=== PATIENT | female | born 1990 | race Caucasian/White ===

== ENCOUNTER 2021-07-15 17:13 | Outpatient (CLI) | payer SELFPAY ==
[2021-07-15 17:35] LABS: Absolute Lymphocyte Count 2.61 X10^3/uL (0.83-4.51); Absolute Neutrophil Count 5.4 X10^3/uL (2.0-7.7); Basophil# 0.03 X10^3/uL; Basophil% 0.3 % (0-1); Eosinophil# 0.27 X10^3/uL; Eosinophils% 2.9 % (0-5); Hematocrit 37.9 % (37-47); Hemoglobin 13.2 g/dL (12.0-15.0); Lymphocyte # 2.61 X10^3/ul (0.83-4.51); Mean Corp Hgb Conc 34.8 g/dL (32-36); Mean Corpuscular Hgb 31.7 pg (27.0-32.0); Mean Corpuscular Volume 91.1 fL (81-99); Mean Platelet Vol. 9.8 fl (6.2-12.0); Monocyte# 0.99 X10^3/uL; Monocyte% 10.6 % (0-10); NRBC Flagged by Analyzer 0 % (0-5); Neutrophil # 5.36 X10^3/uL (2.7-7.7); Neutrophil % 57.7 % (47-70); Platelet Count 271 K/mm3 (150-450); RBC Distribution Width CV 12.3 % (11.6-14.6); RBC Distribution Width SD 40.8 fl (35.1-43.9); Red Blood Count 4.16 M/mm3 (4.2-5.4); White Blood Count 9.3 K/mm3 (4.4-11.0)
[2021-07-16 08:42] LABS: HIV - WCH Non-Reactive (Nonreactive); Hepatitis B Surface Antigen Non-Reactive (Nonreactive); Hepatitis C Antibody Non-Reactive (Nonreactive); Rubella IgG Reactive (Nonreactive); Syphilis Antibodies Non-reactive
[2021-07-17 22:07] LABS: Chlamydia By Nucleic Acid AMP Negative (Negative)
[2021-07-18 11:36] LABS: Gonococcus By Nucleic Acid AMP Negative (Negative)
[2021-07-19 16:28] LABS: HPV Reflexed? NOT INDICATED
== END 2021-07-15 23:59 | disposition short-term general hospital (02) ==
LOC: WOBLAB 17:16
PROVIDERS: Visit Provider Student in an Organized Health Care Education/Training Program
DX: Z34.81 Encounter for supervision of other normal pregnancy, first trimester (principal); Z12.4 Encounter for screening for malignant neoplasm of cervix; Z11.3 Encounter for screening for infections with a predominantly sexual mode of transmission
CPT/HCPCS: 36415; 85025; 86703; 86762; 86780; 86803; 87086; 87088; 87340; 87491; 87591; 88175; G0145

== ENCOUNTER → 2021-11-04 | Outpatient (CLI) | payer SELFPAY ==
[2021-11-04 10:42] LABS: Hematocrit 38.2 % (37-47); Hemoglobin 13.1 g/dL (12.0-15.0); Mean Corp Hgb Conc 34.3 g/dL (32-36); Mean Corpuscular Hgb 32.2 pg (27.0-32.0); Mean Corpuscular Volume 93.9 fL (81-99); Mean Platelet Vol. 10.5 fl (6.2-12.0); Platelet Count 242 K/mm3 (150-450); RBC Distribution Width CV 12.2 % (11.6-14.6); RBC Distribution Width SD 42.1 fl (35.1-43.9); Red Blood Count 4.07 M/mm3 (4.2-5.4); White Blood Count 10.1 K/mm3 (4.4-11.0)
[2021-11-04 10:49] LABS: Glucose Challenge Gest 1H 50g 80 mg/dL (70-140)
== END | disposition home or self-care (01) ==
PROVIDERS: Visit Provider Student in an Organized Health Care Education/Training Program
DX: Z34.83 Encounter for supervision of other normal pregnancy, third trimester (principal); N39.0 Urinary tract infection, site not specified; N77.1 Vaginitis, vulvitis and vulvovaginitis in diseases classified elsewhere
CPT/HCPCS: 36415; 82950; 85027; 87086; 87088

== ENCOUNTER 2022-01-15 02:25 | Inpatient (IN) | payer BC, SELFPAY ==
[2022-01-15] VITALS (67 sets, daily range): BP systolic 94–166; BP diastolic 61–100; PULSE 64–120; RESP 18; TEMP 36.2–37.2; O2SAT 85–100; BMI 34.2
[2022-01-15 02:22] LABS: ROM Internal Control Test YES-OK TO RESULT pt. (Internal QC)
[2022-01-15 02:24] LABS: ROM Patient Test POSITIVE (Negative)
[2022-01-15] MEDS: 0.9% Saline Lock 10 ML Syringe IV ×3 (02:45→20:57)
[2022-01-15 03:46] LABS: Absolute Lymphocyte Count 3.36 X10^3/uL (0.83-4.51); Absolute Neutrophil Count 8.9 X10^3/uL (2.0-7.7); Basophil# 0.05 X10^3/uL; Basophil% 0.4 % (0-1); Eosinophil# 0.32 X10^3/uL; Eosinophils% 2.3 % (0-5); Hematocrit 39.8 % (37-47); Hemoglobin 13.7 g/dL (12.0-15.0); Lymphocyte # 3.36 X10^3/ul (0.83-4.51); Lymphocyte % 23.7 % (19-41); Mean Corp Hgb Conc 34.4 g/dL (32-36); Mean Corpuscular Hgb 31.8 pg (27.0-32.0); Mean Corpuscular Volume 92.3 fL (81-99); Mean Platelet Vol. 11.8 fl (6.2-12.0); Monocyte# 1.44 X10^3/uL; Monocyte% 10.2 % (0-10); NRBC Flagged by Analyzer 0 % (0-5); Neutrophil # 8.88 X10^3/uL (2.7-7.7); Neutrophil % 62.7 % (47-70); Platelet Count 246 K/mm3 (150-450); RBC Distribution Width CV 12.5 % (11.6-14.6); RBC Distribution Width SD 41.4 fl (35.1-43.9); Red Blood Count 4.31 M/mm3 (4.2-5.4); White Blood Count 14.2 K/mm3 (4.4-11.0)
[2022-01-15] MEDS: Betamethasone/Betamethasone 30 MG/5 ML Vial 12 MG IM (03:56)
[2022-01-15 04:11] LABS: AST(SGOT) 21 U/L (15-37); Alanine Aminotransfer ALT/SGPT 18 U/L (13-56); EST Glomerular Filtration Rate 89 mL/min (>60); Est Glom Filt Rate - Afr Amer 108 mL/min (>60); Estimated Creatinine Clearance 111.19 ml/min; Uric Acid 7.3 mg/dL (2.6-6.0)
[2022-01-15 04:47] LABS: Probe Check PASS
[2022-01-15 04:48] LABS: Group B Strep DNA By PCR POSITIVE (Negative)
[2022-01-15] MEDS: Lactated Ringers 1,000 ML 50 ML IV (05:32)
[2022-01-15 05:53] LABS: Protein, Urine (Random) 7.5 mg/dL (<11.9); Protein:Creat Ratio 540 mg/g CRE (0-200)
[2022-01-15] MEDS: miSOPROStol 25 MCG TABLET VAGINAL (08:18)
[2022-01-15] MEDS: Penicillin G 3,000,000 Units 50 ML 100 UNITS IV ×2 (09:49→14:50)
--- NOTE | 2022-01-15 09:59 | HP.PCM_ITS ---
History and Physical Date of Admission: 01/15/22 ACOG ANTEPARTUM RECORD - HISTORY AND PHYSICAL (01/15/2022) Name: CHRISTOPH ANDERSON History of this : This is a 31 year old [id number] presents at 36 wks + 1 days gestation with SROM. Mild headache the past few days. OB Physician: Padmini Rios [place]'s Physician: UNDECIDED ...................................................................... : 1990 Age: 31 Address: [address] [place] [address] Phone: (H) [phone] (O) [phone] Insurance Carrier: [facility] [id number] Emergency Contact: JATIN ANDERSON/ [phone] ...................................................................... Final ANNIE: 02/11/22 By Ultrasound: LMP PARITY: (G-Total Pregnancies P-Fullterm,Premature,Induced AB,Spont AB, Ectopics, Multiple,Living) ANNIE CONFIRMATION: By LMP: 05/07/21 Initial Exam: 02/11/22 By First Ultrasound Exam: 02/09/22 Final ANNIE: 02/11/22 OB PROBLEM LIST: Enc office Childbirth and BF Classes. EPDS 8 Declines genetic testing but will discuss w husb-- parents are Sikh. 2VC ALLERGIES: Latex Rash, itching No Known Drug Allergies MEDICATIONS: 28 mg-800 mcg tablet One pill by mouth once a day SOCIAL HISTORY: Smoking - used to smoke but quit Alcohol Use - drinks occasionally not while Diet - balanced Diet, minimal dairy, occ coffee and Water- 4 liters daily Lifestyle - Exercise - active job. Enc to walk 20 min most days. 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 Illicit Drug Use - denies use of street drugs Sexual Activity - [employer] Residence - owns a home Place of - [place]. Hours Worked - 40 Spouse-Sig Other Name - Jatin Anderson Spouse-Sig Other Occupation - [employer] Spouse-Sig Other Phone No - [phone] Children Name(s) - none PRIOR DELIVERY HISTORY DEL DATE GEST LAB WT LB WT OZ TYPE ANES LABOR TX ANTEPARTUM FLOW CHART VISIT GE RTC FU F F DE U U DATE WK MD WKS HT PN HR M SS BP ED WT DE GL D EF ST __ ____ ___ __ __ ___ __ __ __ ___ __ __ __ ___ __ Jan JM 1 35 V + + 126/82 0 233 - - 23 Piotr 33 JM 2 33 V + + 122/88 sl 229 tr - 06 Piotr 30 CM 2 30 + + 126/80 0 226 ne ne 03 November 25 CM 4 25 + + 120/70 0 220 ne ne Sep 20 CM 4 20 + + 104/68 0 213 ne ne Sep 16 CM 4 + 118/90 0 203 - - Jul 10 CM 4 +U 126/72 0 193 - - ANTEPARTUM NOTE(S): Jan 08 2022: Dec 25 2021: see note Dec 08 2021: FM well. Tired Nov 04 2021: No complaints Sep 30 2021: Glucola given Sep 02 2021: see note Jul 22 2021: doing well COMPREHENSIVE ANTEPARTUM NOTE(S): Jan 08 2022: Christoph is 35w1d here for PNV good FM no edema states she had some decreased FM on wednesday night but FM has been fine since. BR Jan 08 2022: 35 weeks, no complaints. GBS next visit. JM Dec 25 2021: Christoph is here for a pnv at /. Wants to discuss FM. Feels a lot of FM at night and less throughout the day. Sl edema in b/l ankles. Reports continuous sinus congestion/ allergies, wonders what she can do to improve this. Back pain present, trying different methods to relieve pain, maternity belt helps. MK Dec 25 2021: 33wk, 2VC previous u/s AGA reassuring. No further testing pt self pay. JM Dec 08 2021: 30/5w. 2VC - growth AGA. F/u 2w. CM Nov 04 2021: 25/6w. Glucola done today. 2VC - growth today AGA. Other anatomy wnl. Urinary and vaginal burning - urine cx sent, vaginitis sent. Feeling more emotional - discussed stressors in . Will notify if she feels the need for counseling or medications, not at this time. F/u 4w. CM Sep 30 2021: 20/6w. Glucola given for next visit. Anatomy US next week. F/u 4w. CM Sep 02 2021: Christoph is 16w6d. Here for PNV. She complains of constant little headaches that are more prominent in the morning. She has been taking acetaminophen to help relieve them. She also complains of a shooting pain in her hips. She states the pain has improved but still feels achy. She has no other questions/concerns at this time. MR Sep 02 2021: 16/6w. Discussed GANT - increase hydration, stretching, tylenol PRN. Discussed changes in joints/back/center of gravity contributing to more discomfort in . Rec belly support band. F/u 4w Anatomy US. CM Jul 22 2021: Christoph is 10w6d here for PNV. No edema doing well. no concerns or questions. Jul 22 2021: 10/6w FINAL ANNIE 02/11/22 by LMP c/w 10w US. Discussed vitamin supplementation, calcium/vitamin D3. NOB today. F/u 4w. CM Jul 22 2021: NOB VISIT-- Christoph is a 30 yo G 1 P 0 with ANNIE 02-11-[address] del at [facility] probably with epidural, uncertain of post discharge ped care and plans to breastfeed. 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 Her , Jatin works for [employer]. They were in Apr 2021 and are pleased about the pg although it was unplann Jul 15 2021: Christoph is here for a missed menses as a new pt w/ her SO. 30 y.o. . LMP approximately 05/07/21. Positive UPT in office. ANNIE 02/11/2022, pt is about 9 wks and 6 days. Overall doing well. Intermittent nausea, denies vomiting. Lower and upper abdominal cramping/ aching present. Has questions regarding appropriate weight gain and use of skin care products she gets through [facility]. Reviewed medi REVIEW OF SYSTEMS: GENERAL - Denies fever, or chills SKIN - Denies rash, new skin lesions, or change in moles EYES - Denies blurred vision, or change in visual acuity EARS - Denies ear pain, or difficulty hearing NOSE - Denies nasal congestion, discharge, or bleeding MOUTH - Denies sore throat, or difficulty swallowing NECK - Denies pain or swelling RESPIRATORY - Denies shortness of breath, cough, wheezing CARDIOVASCULAR - Denies palpitations, chest pain, orthopnea, PND, peripheral edema, syncope or claudication GASTROINTESTINAL - Denies nausea, vomiting, diarrhea, constipation, Denies abdominal pain, melena and or bright red blood GENITOURINARY - Denies dysuria, frequency of urination, urgency, or hesitancy MUSCULOSKELETAL - Denies joint or muscle pain, or back pain NEUROLOGICAL - Denies localized numbness, weakness, or tingling PSYCHIATRIC - Denies depression, anxiety, substance abuse or suicide attempts ENDOCRINE - Denies heat or cold intolerance, weight loss or gain, increasing thirst HEMATO-IMMUNOLOGIC - Denies easy bruising, bleeding, oral ulcerations or recurrent infections GENETICS SCREENING: Age 35+ years: No Thalassemia: No Neural Tube Defect: No Down Syndrome: No LALO-SACHS: No Sickle Cell Disease: No Hemophilia: No Musc. Dystrophy: No Cystic Fibrosis: No-declines screening [place] Chorea: No Mental Retardation: No Fragile X: No Other genetic: No Other defects: No SABs/still births: No Drugs since LMP: No INFECTION HISTORY: High risk AIDS: No High risk Hepatitis: No Exposed to TB: No Exposed to Herpes: No Rash/viral illness since LMP: No History of STD: No MENSTRUAL HISTORY: *Menses Amount/Duration: normal amountMenses Regularity: RegularMenarche (Age Onset): 16* PAST SUMMARY: PARITY: 1. Total Pregnancies............ 1 2. Full Term Pregnancies........ 0 3. Premature.................... 0 4. Abortions - Induced.......... 0 5. Abortions - Spontaneous...... 0 6. Ectopics..................... 0 7. Multiple Births.............. 0 8. Living Children.............. 0 PHYSICAL EXAMINATION General Appearence: 31 yo female in no acute distress Vital Signs: AF, VSS Heart: RRR without rubs or gallops Lungs: CTA x 2 Breasts: deferred Abdomen: gravid Pelvis: Cervix: Presentation: cephalic Station: Fetus: Size: AGA Movement: present Heart: present LAB TEST(S) ORDERED SINCE:05/17/21 01/15/2022 URIC ACID 01/15/2022 TYPE AND SCREEN 01/15/2022 SERUM CREATININE AND GFR 01/15/2022 PROTEIN+CREATININE RATIO,URINE 01/15/2022 GROUP B STREP DNA BY PCR 01/15/2022 COVID 19 AG RAPID (RN COLLECT) 01/15/2022 CBC-COMPLETE BLOOD CNT NO DIFF 01/15/2022 CBC W/DIFF, AUTOMATED 01/15/2022 AST(SGOT) 01/15/2022 ALANINE AMINOTRANSFERAS (SGPT) 01/15/2022 (ROM) RUPTURE OF MEMBRANES 11/06/2021 URINE CULTURE 11/06/2021 MISCELLANEOUS LAB PROCEDURE 11/04/2021 GLUCOSE CHALLENGE GEST 1H 50G 11/04/2021 CBC-COMPLETE BLOOD CNT NO DIFF 07/19/2021 PAP I-G W/RFX HRHPV-APTIMA 07/18/2021 CHLAMYDIA/GC IZZY APTIMA 07/17/2021 URINE CULTURE 07/16/2021 RUBELLA IGG 07/16/2021 L509.8000 07/16/[address] [facility] 07/16/2021 HEPATITIS C ANTIBODY 07/16/2021 HEPATITIS B SURFACE ANTIGEN 07/15/2021 T AND S-NO CHARGE W/PNP 07/15/2021 CBC W/DIFF, AUTOMATED == ==== Order Observation Description Value Ref_Range A* Site == ==== PROTEIN+CREATIN NOTE ARAYA PROTEIN+CREATIN UR CREAT 13.90 mg/dL NO RANGE EST. ML PROTEIN+CREATIN PROTEIN,UR.RAN. 7.5 mg/dL <11.9 ML PROTEIN+CREATIN PROT:CRE RATIO 540 mg/g CRE 0-200 H ML CBC-COMPLETE BL NOTE ARAYA CBC-COMPLETE BL WBC K/mm3 4.4-11.0 ML CBCD ORDERED CBC-COMPLETE BL RBC M/mm3 4.2-5.4 ML CBCD ORDERED CBC-COMPLETE BL HGB g/dL 12.0-15.0 ML CBCD ORDERED CBC-COMPLETE BL HCT 37-47 ML CBCD ORDERED CBC-COMPLETE BL MCV fL 81-99 ML CBCD ORDERED CBC-COMPLETE BL MCH pg 27.0-32.0 ML CBCD ORDERED CBC-COMPLETE BL MCHC g/dL 32-36 ML CBCD ORDERED CBC-COMPLETE BL RDW CV 11.6-14.6 ML CBCD ORDERED CBC-COMPLETE BL RDW SD fl 35.1-43.9 ML CBCD ORDERED CBC-COMPLETE BL PLT K/mm3 150-450 ML CBCD ORDERED [facility]~[address] [place], [address]~ TYPE AND SCRE AB SCREEN GEL NEGATIVE ML GROUP B STREP D NOTE ARAYA GROUP B STREP D GBS DNA ASSAY POSITIVE Negative A ML Penicillin is the recommended antibiotic for the treatment of Group B Streptococcal disease. In case of penicillin allergy, susceptibility testing for Clindamycin and Erythromycin is suggested by request. RESULTS CALLED TO Kurtis CAZARES RN WP 01/15/22 0447 Dejuan Stevenson. REPORT READ BACK BY SAME. ALANINE AMINOTR NOTE ARAYA ALANINE AMINOTR ALT 18 U/L 13-56 ML AST(SGOT) NOTE ARAYA AST(SGOT) AST 21 U/L 15-37 ML URIC ACID NOTE ARAYA URIC ACID URIC 7.3 mg/dL 2.6-6.0 H ML The drugs N-Acetylcysteine and Metamizole may falsely depress this assay. SERUM CREATININ NOTE ARAYA SERUM CREATININ CREAT,SERUM 0.80 mg/dL 0.55-1.02 ML The validity of the calculated GFR GFRAA in patients over 70 years has not been determined. Clinical correlation is essential. SERUM CREATININ EST GFR 89 mL/min >60 ML Non- GFR Calc SERUM CREATININ EST GFR - AA 108 mL/min >60 ML GFR Calc SERUM CREATININ ECRCL 111.19 ml/min ML COVID 19 AG RAP NOTE ARAYA CBC W/DIFF, AUT NOTE ARAYA CBC W/DIFF, AUT WBC 14.2 K/mm3 4.4-11.0 H ML CBC W/DIFF, AUT RBC 4.31 M/mm3 4.2-5.4 ML CBC W/DIFF, AUT HGB 13.7 g/dL 12.0-15.0 ML CBC W/DIFF, AUT HCT 39.8 37-47 ML CBC W/DIFF, AUT MCV 92.3 fL 81-99 ML CBC W/DIFF, AUT MCH 31.8 pg 27.0-32.0 ML CBC W/DIFF, AUT MCHC 34.4 g/dL 32-36 ML CBC W/DIFF, AUT RDW CV 12.5 11.6-14.6 ML CBC W/DIFF, AUT RDW SD 41.4 fl 35.1-43.9 ML CBC W/DIFF, AUT PLT 246 K/mm3 150-450 ML CBC W/DIFF, AUT MPV 11.8 fl 6.2-12.0 ML CBC W/DIFF, AUT NEUT% 62.7 47-70 ML CBC W/DIFF, AUT LY% 23.7 19-41 ML CBC W/DIFF, AUT MONO% 10.2 0-10 H ML CBC W/DIFF, AUT EO% 2.3 0-5 ML CBC W/DIFF, AUT BASO% 0.4 0-1 ML CBC W/DIFF, AUT IG% 0.700 0.0-0.9 ML IG% - Immature Granulocytes (promyelocytes, myelocytes and metamyelocytes) > 1% indicates that a LEFT SHIFT is Present. CBC W/DIFF, AUT ABSOLUTE NEUT 8.9 X10 3/uL 2.0-7.7 H ML CBC W/DIFF, AUT ABSOLUTE LYMPH 3.36 X10 3/uL 0.83-4.51 ML CBC W/DIFF, AUT NUCLEATED RBC 0 0-5 ML (ROM) RUPTURE O NOTE ARAYA (ROM) RUPTURE O ROM POSITIVE Negative A ML Amniotic fluid present indicates rupture of Membranes. RESULTS CALLED TO Luke LORENZO RN (WP) 01/15/22 8332 Chemo Lucas. REPORT READ BACK BY SAME . MISCELLANEOUS L NOTE ARAYA MISCELLANEOUS L MISC LAB TEST ML TEST RESULT LIMITS NuSwab Vaginitis Plus (VG+) Bacterial Vaginosis, IZZY Atopobium vaginae Low - 0 Score BVAB 2 Low - 0 Score Megasphaera 1 Low - 0 Score Total Score, add three scores Calculate total score by adding the 3 individual bacterial vaginosis (BV) marker scores together. Total score is interpreted as follows: Total score 0-1: Indicates the absence of BV. Total score 2: Indeterminate for BV. Additional clinical data should be evaluated to establish a diagnosis. Total score 3-6: Indicates the presence of BV. This test was developed and its performance characteristics determined by [facility]. It has not been cleared or approved by the Food and Drug Administration. Yaquelin albicans, IZZY A, Negative Negative Yaquelin glabrata, IZZY A, Negative Negative Trich vag by IZZY Negative Negative Chlamydia trachomatis, IZZY Negative Negative Neisseria gonorrhoeae, IZZY Negative Negative Comments A: This test was developed and its performance characteristics determined by [facility]. It has not been cleared or approved by the Food and Drug Administration. TESTING PERFORMED AT [facility]. ORIGINAL REPORT ON FILE IN LAB CONTAINS ADDITIONAL TEST SITE INFORMATION. URINE CULTURE NOTE ARAYA GLUCOSE CHALLEN NOTE ARAYA GLUCOSE CHALLEN GLU GEST 50G 1H 80 mg/dL 70-140 ML CBC-COMPLETE BL NOTE ARAYA CBC-COMPLETE BL WBC 10.1 K/mm3 4.4-11.0 ML CBC-COMPLETE BL RBC 4.07 M/mm3 4.2-5.4 L ML CBC-COMPLETE BL HGB 13.1 g/dL 12.0-15.0 ML CBC-COMPLETE BL HCT 38.2 37-47 ML CBC-COMPLETE BL MCV 93.9 fL 81-99 ML CBC-COMPLETE BL MCH 32.2 pg 27.0-32.0 H ML CBC-COMPLETE BL MCHC 34.3 g/dL 32-36 ML CBC-COMPLETE BL RDW CV 12.2 11.6-14.6 ML CBC-COMPLETE BL RDW SD 42.1 fl 35.1-43.9 ML CBC-COMPLETE BL PLT 242 K/mm3 150-450 ML CBC-COMPLETE BL MPV 10.5 fl 6.2-12.0 ML URINE CULTURE NOTE ARAYA HEPATITIS C ANT NOTE ARAYA HEPATITIS C ANT HEPATITIS C AB Non-Reactive Nonreactive ML Non Reactive: < 0.8 Equivocal: >/= 0.8 to < 1.0 Reactive: >/= 1.0 The CDC recommends that a reactive/equivocal HCV antibody result be followed up by the HCV Nucleic Acid Amplification test (620022) HEPATITIS B JESSICA NOTE ARAYA HEPATITIS B JESSICA HEP B SURF AG Non-Reactive Nonreactive ML HIV - WC NOTE ARAYA HIV - [facility] HIV Non-Reactive Nonreactive ML L509.8000 NOTE ARAYA L509.8000 SYPHILIS ABS Non-reactive ML RUBELLA IGG NOTE ARAYA RUBELLA IGG RUBELLA IGG Reactive Nonreactive ML Antibody Results Interpretation of Immune Status Non Reactive Presumed Non-Immune Equivocal Equivocal Reactive Presumed Immune PN N [facility]~[address] [place] [place], [address]~ T AND AB SCREEN GEL NEGATIVE ML CBC W/DIFF, AUT NOTE ARAYA CBC W/DIFF, AUT WBC 9.3 K/mm3 4.4-11.0 ML CBC W/DIFF, AUT RBC 4.16 M/mm3 4.2-5.4 L ML CBC W/DIFF, AUT HGB 13.2 g/dL 12.0-15.0 ML CBC W/DIFF, AUT HCT 37.9 37-47 ML CBC W/DIFF, AUT MCV 91.1 fL 81-99 ML CBC W/DIFF, AUT MCH 31.7 pg 27.0-32.0 ML CBC W/DIFF, AUT MCHC 34.8 g/dL 32-36 ML CBC W/DIFF, AUT RDW CV 12.3 11.6-14.6 ML CBC W/DIFF, AUT RDW SD 40.8 fl 35.1-43.9 ML CBC W/DIFF, AUT PLT 271 K/mm3 150-450 ML CBC W/DIFF, AUT MPV 9.8 fl 6.2-12.0 ML CBC W/DIFF, AUT NEUT% 57.7 47-70 ML CBC W/DIFF, AUT LY% 28.0 19-41 ML CBC W/DIFF, AUT MONO% 10.6 0-10 H ML CBC W/DIFF, AUT EO% 2.9 0-5 ML CBC W/DIFF, AUT BASO% 0.3 0-1 ML CBC W/DIFF, AUT IG% 0.500 0.0-0.9 ML IG% - Immature Granulocytes (promyelocytes, myelocytes and metamyelocytes) > 1% indicates that a LEFT SHIFT is Present. CBC W/DIFF, AUT ABSOLUTE NEUT 5.4 X10 3/uL 2.0-7.7 ML CBC W/DIFF, AUT ABSOLUTE LYMPH 2.61 X10 3/uL 0.83-4.51 ML CBC W/DIFF, AUT NUCLEATED RBC 0 0-5 ML PAP I-G W/RFX H NOTE ARAYA PAP I-G W/RFX H DIAG Comment . [facility]CI NEGATIVE FOR INTRAEPITHELIAL LESION OR MALIGNANCY. PAP I-G W/RFX H ADEQ Comment . LCI Satisfactory for evaluation. Endocervical and/or squamous metaplastic cells (endocervical component) are present. PAP I-G W/RFX H PERFORM Comment . LCI Donna Sosa Onyx Chip Terrazzo Worker (ASCP) This liquid based ThinPrep(R) pap test was screened with the use of an image guided system. PAP I-G W/RFX H COMM . . LCI PAP I-G W/RFX H PAPSMR Comment . LCI The Pap smear is a screening test designed to aid in the detection of premalignant and malignant conditions of the uterine cervix. It is not a diagnostic procedure and should not be used as the sole means of detecting cervical cancer. Both false-positive and false-negative reports do occur. PAP I-G W/RFX H HPV RFLX Comment . LCI The HPV DNA reflex criteria were not met with this specimen result therefore, no HPV testing was performed. Performed at: - [address] [id number] Safety Glass Installer: Ibeth Verdugo MD, Phone: [phone] CHLAMYDIA/GC NA NOTE ARAYA CHLAMYDIA/GC NA CHLAMY,NUC ACID Negative Negative LCI CHLAMYDIA/GC NA GC BY NUC ACID Negative Negative LCI Performed at: =[address] [id number] Safety Glass Installer: Ibeth Verdugo MD, Phone: [phone] B POSITIVE *Negative results from patients with symptom onset beyond five days should be treated as presumptive and confirmed by a molecular assay if clinically necessary. Negative results should not be used as the sole basis for treatment or for patient management. SARS-CoV-2 Ag Resp Ql IA.rapid *Positive results do not differentiate between SARS-CoV and SARS-CoV-2. If differentiation of the specific SARS virus is desired an additional sample and an additional order is required. SARS-CoV-2 Ag Resp Ql IA.rapid * This test has not been FDA cleared or approved; the test has been authorized by FDA under an Emergency Use Authorization (EAU) for use by laboratories certified under CLIA that meet the requirements to perform moderate, high, or waived complexity tests. SARS-CoV-2 Ag Resp Ql IA.rapid Normal Reference Range: Negative SARS-CoV-2 (COVID 19) Negative RAPID METHOD Quidel Ngozi Analyzer JOHN Below infection level. Mixed Gram Positive Organisms [place] Count <1000 Mixed Gram Pos Gram Neg Org [place] Count 11,000-25,000 MIXC Mixed contaminants. Submit a new specimen if indicated. B POSITIVE == ==== Impression /Plan: 36 wks + 1 days intrauterine with SROM at home. GBS positive on L and D. [facility] labs sent. Preparations in progress for delivery.
[2022-01-15] MEDS: LACTATED RINGERS 500 ML 999 ML IV (13:05)
[2022-01-15] MEDS: fentaNYL-bupivacaine (epidural) 100 ML BAG EPIDURAL (13:50)
[2022-01-15] MEDS: Oxytocin 30 units/NS 500 ml 30 UNITS/500 ML IV.SOLN 334 UNITS IV (17:57)
--- NOTE | 2022-01-15 18:11 | EX.PCM.OBRPT ---
Vaginal Delivery Operative Information Date of Procedure: 01/15/22 Findings Description of Procedure: Normal spontaneous vaginal delivery of a viable male , vertex ADRIANNA. Head and shoulders delivered with ease. Cord cut and clamped. Baby handed off to patient. First-degree midline perineal laceration and periurethral laceration noted and repaired in typical fashion. EBL 350 cc Apgars 8/9
[2022-01-15] MEDS: Benzocaine/Lanolin/Aloe Vera 1 SPRAY EACH TOPICAL (20:57)
--- NOTE | 2022-01-15 21:27 | NURSING ---
goldberg catheter discontinued per this RN. 10cc NS removed. 200 cc urine clear, yellow noted. pt tolerated well.
[2022-01-16 04:00] VITALS: BP 133/77; PULSE 85; RESP 16; TEMP 36.7
[2022-01-16 04:43] LABS: Absolute Lymphocyte Count 1.97 X10^3/uL (0.83-4.51); Absolute Neutrophil Count 18.7 X10^3/uL (2.0-7.7); Basophil# 0.04 X10^3/uL; Basophil% 0.2 % (0-1); Eosinophil# 0.01 X10^3/uL; Hemoglobin 12.8 g/dL (12.0-15.0); Lymphocyte # 1.97 X10^3/ul (0.83-4.51); Lymphocyte % 8.4 % (19-41); Mean Corp Hgb Conc 33.7 g/dL (32-36); Mean Corpuscular Hgb 31.4 pg (27.0-32.0); Mean Corpuscular Volume 93.1 fL (81-99); Mean Platelet Vol. 11.1 fl (6.2-12.0); Monocyte# 2.56 X10^3/uL; Monocyte% 10.9 % (0-10); NRBC Flagged by Analyzer 0 % (0-5); Neutrophil # 18.73 X10^3/uL (2.7-7.7); Neutrophil % 79.7 % (47-70); POSITIVE DIFFERENTIAL YES; Platelet Count 240 K/mm3 (150-450); RBC Distribution Width CV 12.5 % (11.6-14.6); RBC Distribution Width SD 42.5 fl (35.1-43.9); Red Blood Count 4.08 M/mm3 (4.2-5.4); White Blood Count 23.5 K/mm3 (4.4-11.0)
[2022-01-16 04:44] LABS: Differential Indicated SCAN CRITERIA MET
[2022-01-16 04:59] LABS: ALB/GLOB Ratio 0.7 RATIO (0.9-2.4); AST(SGOT) 20 U/L (15-37); Alanine Aminotransfer ALT/SGPT 17 U/L (13-56); Albumin, Serum 2.6 g/dL (3.2-5.0); Alkaline Phosphatase 147 U/L (45-117); Anion Gap 5 (5-15); BUN 11 mg/dL (7-18); Calcium,Total 8.7 mg/dL (8.5-10.1); Chloride 109 mmol/L (98-107); Creatinine, Serum 0.92 mg/dL (0.55-1.02); EST Glomerular Filtration Rate 77 mL/min (>60); Est Glom Filt Rate - Afr Amer 93 mL/min (>60); Estimated Creatinine Clearance 96.69 ml/min; Globulin 3.7 g/dL (2.2-4.2); Glucose 107 mg/dL (74-106); Potassium 4.6 mmol/L (3.5-5.1); Protein, Total 6.3 g/dL (6.4-8.2); Sodium Level 136 mmol/L (136-145)
[2022-01-16 05:03] LABS: Differential Comment SCANNED
--- NOTE | 2022-01-16 06:46 | PCM.PN.OB ---
Subjective Subjective Patient without complaints. Breast-feeding going well. Plans to stay until tomorrow. Objective Data Objective Data Vital Signs: Vital Signs Temp Pulse Resp BP Pulse Ox O2 Del Method 98.0 F 85 16 133/77 H 97 Room Air 01/16/22 04:00 01/16/22 04:00 01/16/22 04:00 01/16/22 04:00 01/15/22 23:25 01/16/22 04:00 Oxygen Delivery Method Room Air Weight: 238 lb 9.6 oz Body Mass Index (BMI) 34.2 Intake & Output: Intake and Output for Last 24 Hours 01/14/22 01/15/22 01/16/22 23:59 23:59 23:59 Intake Total 4245.00 / 4245.00 Output Total 2400 / 2400 600 / 600 Balance 1845.00 / 1845.00 -600 / -600 Lab / Micro Data Result Diagrams: 01/16/22 04:30 01/16/22 04:30 Labs: Laboratory Results - last 24 hr 01/16/22 04:30: WBC 23.5 H, RBC 4.08 L, Hgb 12.8, Hct 38.0, MCV 93.1, MCH 31.4, MCHC 33.7, RDW Std Deviation 42.5, RDW Coeff of Vimal 12.5, Plt Count 240, MPV 11.1, Immature Gran % (Auto) 0.800, Neut % (Auto) 79.7 H, Lymph % (Auto) 8.4 L, [place] % (Auto) 10.9 H, Eos % (Auto) 0.0, Baso % (Auto) 0.2, Absolute Neuts (auto) 18.7 H, Absolute Lymphs (auto) 1.97, Nucleated RBC % 0, Differential Comment SCANNED, Diff Path Review November01/16/22 04:30: Sodium 136, Potassium 4.6, Chloride 109 H, Carbon Dioxide 22.0, Anion Gap 5, BUN 11, Creatinine 0.92, Estim Creat Clear Calc 96.69, Est GFR (MDRD) Af Amer 93, Est GFR (MDRD) Non-Af 77, BUN/Creatinine Ratio 12.0, Glucose 107 H, Calcium 8.7, Total Bilirubin 0.60, AST 20, ALT 17, Alkaline Phosphatase 147 H, Total Protein 6.3 L, Albumin 2.6 L, Globulin 3.7, Albumin/Globulin Ratio 0.7 L Micro: Microbiology 01/15/22 02:45 Nasal Secretion SARS-CoV-2 Antigen (Rapid) - Final Assessment & Plan (1) Spontaneous vaginal delivery: PLAN: Doing well day #1 status post routine spontaneous vaginal delivery. Continuing present care.
[2022-01-16 07:52] VITALS: BP 135/83; PULSE 87; RESP 18; TEMP 37.2
[2022-01-16] MEDS: Ibuprofen 600 MG Tablet PO (08:23)
[2022-01-16 11:11] VITALS: BP 138/80; PULSE 82; RESP 20; TEMP 37.2
[2022-01-16 11:18] LABS: Pathologist Review Reviewed
[2022-01-16 15:14] VITALS: BP 132/83; PULSE 87; RESP 18; TEMP 36.8
[2022-01-16 20:16] VITALS: BP 136/89; PULSE 84; RESP 18; TEMP 36.9
[2022-01-17 02:00] VITALS: BP 119/64; PULSE 62; RESP 18; TEMP 36.7; O2SAT 98
[2022-01-17] MEDS: Ibuprofen 600 MG Tablet PO (03:34)
[2022-01-17 08:47] VITALS: BP 124/66; PULSE 77; RESP 18; TEMP 36.4; O2SAT 97
--- NOTE | 2022-01-17 11:31 | PN.OBGYN_ITS ---
Subjective Subjective Patient without complaints. Breast-feeding going well. Wants to go home today. Objective Data Objective Data Vital Signs: Vital Signs Temp Pulse Resp BP Pulse Ox O2 Del Method 97.5 F L 77 18 124/66 H 97 Room Air 01/17/22 08:47 01/17/22 08:47 01/17/22 08:47 01/17/22 08:47 01/17/22 08:47 01/17/22 08:47 Oxygen Delivery Method Room Air Weight: 238 lb 9.6 oz Body Mass Index (BMI) 34.2 Intake & Output: Intake and Output for Last 24 Hours 01/15/22 01/16/22 01/17/22 23:59 23:59 23:59 Intake Total 4245.00 / 4245.00 Output Total 2400 / 2400 600 / 600 Balance 1845.00 / 1845.00 -600 / -600 Lab / Micro Data Result Diagrams: 01/16/22 04:30 01/16/22 04:30 Micro: Microbiology 01/15/22 02:45 Nasal Secretion SARS-CoV-2 Antigen (Rapid) - Final Assessment & Plan (1) Spontaneous vaginal delivery: PLAN: Doing well day #2 status post routine spontaneous vaginal deli very at 36+ weeks gestation. Will discharge to home with routine instructions given.
--- NOTE | 2022-01-17 11:32 | DCINST_ITS ---
Discharge Instructions Diet Discharge Diet: No restrictions Activity Discharge Activity: May Drive (In 1 to 2 days if not taking narcotic pain medication), May Shower and May Take a Tub Bath May resume sexual activity in: 4-6 weeks Additional Activity Instructions:: Nothing in the vagina for 4-6 weeks. You may return to work/school in 6 weeks. Dressing / Incision Call your doctor if you observe: Fever of 101 or Higher, Inability to urinate, Inability to have a bowel movement and Using more than 1 pad per hour Follow Up Care Please Follow Up With: Thor Cadena MD When: Call [phone] to make an appointment with your doctor in 6 weeks. Test Results: Test results from this visit will be discussed in further detail at your follow- up appointment, if applicable. Discharge Plan Admission Admit Date/Time: 01/15/22 02:25 Primary Reason for Your Visit: Spontaneous Vaginal Delivery Attending Provider: Thor Cadena Primary Care Provider: Jocelynn Lazaro Primary Instructions Patient Instructions: After a Vaginal Discharge Orders/Prescriptions Prescriptions: No Action 1 tab PO/SL DAILY Referrals / Follow Up: Care Physician,Jocelynn Primary [Primary Care Provider] - Disposition Disposition (needs filled in before D/C Order can be placed): Home, Self Care
--- NOTE | 2022-01-17 12:15 | NURSING ---
Pt will call [facility] for follow up appointment in 6 weeks.
== END 2022-01-17 12:15 | disposition home or self-care (01) | DRG 805 ==
LOC: WPOUT 02:26 → WP 02:26
PROVIDERS: Obstetrics & Gynecology; Admitting Provider Obstetrics & Gynecology; Visit Provider Obstetrics & Gynecology
DX: O42.913 Preterm premature rupture of membranes, unspecified as to length of time between rupture and onset of labor, third trimester (principal); Z37.0 Single live birth; O60.14X0 Preterm labor third trimester with preterm delivery third trimester, not applicable or unspecified; M41.80 Other forms of scoliosis, site unspecified; O99.892 Other specified diseases and conditions complicating childbirth; O71.82 Other specified trauma to perineum and vulva; O99.824 Streptococcus B carrier state complicating childbirth; O35.8XX0 Maternal care for other (suspected) fetal abnormality and damage, not applicable or unspecified; O70.0 First degree perineal laceration during delivery; Z3A.36 36 weeks gestation of pregnancy; Z87.891 Personal history of nicotine dependence
CPT/HCPCS: 59025; 59050; 80053; 82565; 82570; 84112; 84156; 84450; 84460; 84550; 85025; 86850; 86900; 86901; 87426; 87653; 99218; J7120; A4216; G0378; J0702